=== PATIENT | male | born 1980 | race Two or more races ===

== ENCOUNTER 2023-01-05 10:43 | Inpatient (IN) | payer OTHER ==
[2023-01-05 11:50] VITALS: BMI 52.2
[2023-01-05] MEDS ORDERED: BENZONATATE 200 MG CAPSULE PO PRN (12:20)
[2023-01-05] MEDS ORDERED: NALOXONE HCL 0.4 MG/ML VIAL IM PRN (12:20)
[2023-01-05] MEDS ORDERED: DICYCLOMINE HCL 10 MG CAPSULE PO PRN (12:20)
[2023-01-05] MEDS ORDERED: guaiFENesin 600 MG TABLET.ER (FP) PO PRN (12:20)
[2023-01-05] MEDS ORDERED: MAG HYDROX/AL HYDROX/SIMETH 30 ML UNIT-DOSE CUP PO PRN (12:20)
[2023-01-05] MEDS ORDERED: chlordiazePOXIDE HCL 25 MG CAPSULE PO PRN (12:20)
[2023-01-05] MEDS ORDERED: BENZOCAINE/MENTHOL (CHLORASEPTIC ) LOZENGE MM PRN (12:20)
[2023-01-05] MEDS ORDERED: ACETAMINOPHEN 325 MG TABLET (FP) PO PRN (12:20)
[2023-01-05] MEDS ORDERED: BISMUTH SUBSALICYLATE 524 MG/30 ML PO PRN (12:20)
[2023-01-05] MEDS ORDERED: IBUPROFEN 400 MG TABLET (FP) PO PRN (12:20)
[2023-01-05] MEDS ORDERED: POLYETHYLENE GLYCOL (HEALTHYLAX) 3350 17 GM PACKET PO PRN (12:20)
[2023-01-05] MEDS ORDERED: ONDANSETRON *ODT* 4 MG TABLET SL PRN (12:20)
[2023-01-05] MEDS ORDERED: LOPERAMIDE HCL 2 MG CAPSULE PO PRN (12:20)
[2023-01-05] MEDS ORDERED: NALOXONE HCL (KLOXXADO) 8 MG SPRAY NS PRN (12:20)
[2023-01-05] MEDS ORDERED: IBUPROFEN 600 MG TABLET (FP) PO PRN (12:20)
[2023-01-05] MEDS ORDERED: MAGNESIUM HYDROX 2400MG/30ML ORAL SUSPENSION 30 ML CUP PO PRN (12:20)
[2023-01-05] MEDS ORDERED: chlordiazePOXIDE HCL 25 MG CAPSULE PO ONE (13:00)
[2023-01-05] MEDS ORDERED: NICOTINE 7 MG/24 HOURS TOPICAL PATCH TD ONE (14:20)
[2023-01-05] MEDS ORDERED: chlordiazePOXIDE HCL 25 MG CAPSULE ONE (14:20)
[2023-01-05] MEDS ORDERED: PRENATAL VITAMINS W/ FOLIC ACID TABLET (FP) PO ONE (14:21)
[2023-01-05] MEDS: NICOTINE 7 MG/24 HOURS TOPICAL PATCH TD SCH (14:24)
[2023-01-05] MEDS: PRENATAL VITAMINS W/ FOLIC ACID TABLET (FP) PO SCH (14:24)
[2023-01-05] MEDS: metFORMIN HCL 500 MG TABLET (FP) PO SCH (17:19)
[2023-01-05] MEDS: chlordiazePOXIDE HCL 25 MG CAPSULE PO SCH ×2 (17:19→22:10)
[2023-01-05] MEDS: MONTELUKAST NA 10 MG TABLET PO SCH (22:10)
[2023-01-05] MEDS: MIRTAZAPINE 15 MG TABLET (FP) PO SCH (22:10)
[2023-01-05] MEDS: QUEtiapine FUMARATE 25 MG TABLET PO SCH (22:10)
[2023-01-05] MEDS: THIAMINE HCL 100 MG TABLET (FP) PO SCH (22:10)
[2023-01-05] MEDS: INSULIN (LEVEMIR) 100 UNITS/ML UNITS SQ SCH (22:12)
[2023-01-05] MEDS: MELATONIN 5 MG TABLETS PO SCH (23:12)
[2023-01-06] MEDS: chlordiazePOXIDE HCL 25 MG CAPSULE PO SCH ×4 (05:50→22:37)
[2023-01-06] MEDS: metFORMIN HCL 500 MG TABLET (FP) PO SCH ×2 (07:38→17:36)
[2023-01-06] MEDS: EMPAGLIFLOZIN (NF) 10 MG TABLET PO SCH (10:10)
[2023-01-06] MEDS: PRENATAL VITAMINS W/ FOLIC ACID TABLET (FP) PO SCH (10:10)
[2023-01-06] MEDS: hydrOXYzine PAMOATE 25 MG CAPSULE (FP) PO PRN (10:11)
[2023-01-06] MEDS: METHOCARBAMOL 500 MG TABLET PO PRN (10:11)
[2023-01-06] MEDS: ATORVASTATIN CA 80 MG TABLET (FP) PO SCH (10:11)
[2023-01-06] MEDS: CHOLECALCIFEROL (VIT D3) 1,000 UNIT (25 MCG) TABLET PO SCH (10:11)
[2023-01-06] MEDS: ASPIRIN COATED 81 MG TABLET.EC PO SCH (10:12)
[2023-01-06] MEDS: ARIPiprazole 10 MG TABLET PO SCH (10:12)
[2023-01-06] MEDS: LISINOPRIL 20 MG TABLET PO SCH (10:12)
[2023-01-06] MEDS: NICOTINE 7 MG/24 HOURS TOPICAL PATCH TD SCH (10:13)
[2023-01-06 12:03] LABS: POTASSIUM 4.5 mmol/L (3.5-5.1)
[2023-01-06 12:04] LABS: HEMATOCRIT 44.6 % (35.4-49); MCH 30.3 pg (25.7-33.7); MCHC 33.6 g/dl (32.0-35.9); MEAN CELL VOLUME 90.1 fl (80-96); PLATELET COUNT 115 10^3/uL (134-434); RBC 4.95 M/mm3 (4.00-5.60); RDW 15.6 % (11.9-15.9)
[2023-01-06 12:21] LABS: CALCIUM 8.5 mg/dL (8.5-10.1)
[2023-01-06 12:23] LABS: ALBUMIN 3.4 g/dl (3.4-5.0); BLOOD UREA NITROGEN 10.4 mg/dL (7-18)
[2023-01-06 12:25] LABS: CREATININE 0.8 mg/dL (0.55-1.3)
[2023-01-06 12:26] LABS: TOT PROT 6.6 g/dl (6.4-8.2)
[2023-01-06 12:28] LABS: BILIRUBIN,TOTAL 0.5 mg/dL (0.2-1)
[2023-01-06] MEDS: LACTULOSE 20 GM/30 ML UDC (FOR ORAL USE ONLY) PO SCH ×2 (15:41→22:41)
[2023-01-06] MEDS: THIAMINE HCL 100 MG TABLET (FP) PO SCH (22:37)
[2023-01-06] MEDS: QUEtiapine FUMARATE 25 MG TABLET PO SCH (22:37)
[2023-01-06] MEDS: MONTELUKAST NA 10 MG TABLET PO SCH (22:37)
[2023-01-06] MEDS: MIRTAZAPINE 15 MG TABLET (FP) PO SCH (22:37)
[2023-01-07] MEDS: INSULIN (LEVEMIR) 100 UNITS/ML UNITS SQ SCH ×2 (00:16→23:15)
[2023-01-07] MEDS: MELATONIN 5 MG TABLETS PO SCH ×2 (00:25→23:16)
[2023-01-07] MEDS: chlordiazePOXIDE HCL 25 MG CAPSULE PO SCH ×4 (05:49→23:16)
[2023-01-07] MEDS: LACTULOSE 20 GM/30 ML UDC (FOR ORAL USE ONLY) PO SCH ×3 (05:50→23:15)
[2023-01-07] MEDS: metFORMIN HCL 500 MG TABLET (FP) PO SCH ×2 (06:23→17:13)
[2023-01-07] MEDS: PRENATAL VITAMINS W/ FOLIC ACID TABLET (FP) PO SCH (10:10)
[2023-01-07] MEDS: ATORVASTATIN CA 80 MG TABLET (FP) PO SCH (10:10)
[2023-01-07] MEDS: METHOCARBAMOL 500 MG TABLET PO PRN (10:10)
[2023-01-07] MEDS: ASPIRIN COATED 81 MG TABLET.EC PO SCH (10:11)
[2023-01-07] MEDS: hydrOXYzine PAMOATE 25 MG CAPSULE (FP) PO PRN (10:11)
[2023-01-07] MEDS: LISINOPRIL 20 MG TABLET PO SCH (10:11)
[2023-01-07] MEDS: ARIPiprazole 10 MG TABLET PO SCH (10:11)
[2023-01-07] MEDS: EMPAGLIFLOZIN (NF) 10 MG TABLET PO SCH (10:11)
[2023-01-07] MEDS: CHOLECALCIFEROL (VIT D3) 1,000 UNIT (25 MCG) TABLET PO SCH (10:12)
[2023-01-07] MEDS: NICOTINE 7 MG/24 HOURS TOPICAL PATCH TD SCH (10:12)
[2023-01-07] MEDS: MIRTAZAPINE 15 MG TABLET (FP) PO SCH (23:16)
[2023-01-07] MEDS: THIAMINE HCL 100 MG TABLET (FP) PO SCH (23:16)
[2023-01-07] MEDS: QUEtiapine FUMARATE 25 MG TABLET PO SCH (23:16)
[2023-01-07] MEDS: MONTELUKAST NA 10 MG TABLET PO SCH (23:16)
[2023-01-08] MEDS ORDERED: chlordiazePOXIDE HCL 10 MG CAPSULE PO PRN
[2023-01-08] MEDS: chlordiazePOXIDE HCL 10 MG CAPSULE PO SCH ×4 (05:41→22:12)
[2023-01-08] MEDS: LACTULOSE 20 GM/30 ML UDC (FOR ORAL USE ONLY) PO SCH ×3 (05:42→22:11)
[2023-01-08] MEDS: metFORMIN HCL 500 MG TABLET (FP) PO SCH ×2 (06:05→17:19)
[2023-01-08] MEDS: ATORVASTATIN CA 80 MG TABLET (FP) PO SCH (10:18)
[2023-01-08] MEDS: LISINOPRIL 20 MG TABLET PO SCH (10:18)
[2023-01-08] MEDS: CHOLECALCIFEROL (VIT D3) 1,000 UNIT (25 MCG) TABLET PO SCH (10:18)
[2023-01-08] MEDS: PRENATAL VITAMINS W/ FOLIC ACID TABLET (FP) PO SCH (10:19)
[2023-01-08] MEDS: ASPIRIN COATED 81 MG TABLET.EC PO SCH (10:19)
[2023-01-08] MEDS: hydrOXYzine PAMOATE 25 MG CAPSULE (FP) PO PRN (10:19)
[2023-01-08] MEDS: METHOCARBAMOL 500 MG TABLET PO PRN (10:19)
[2023-01-08] MEDS: ARIPiprazole 10 MG TABLET PO SCH (10:19)
[2023-01-08] MEDS: NICOTINE 7 MG/24 HOURS TOPICAL PATCH TD SCH (10:19)
[2023-01-08] MEDS: EMPAGLIFLOZIN (NF) 10 MG TABLET PO SCH (10:19)
[2023-01-08] MEDS: MONTELUKAST NA 10 MG TABLET PO SCH (22:11)
[2023-01-08] MEDS: INSULIN (LEVEMIR) 100 UNITS/ML UNITS SQ SCH (22:11)
[2023-01-08] MEDS: MIRTAZAPINE 15 MG TABLET (FP) PO SCH (22:12)
[2023-01-08] MEDS: THIAMINE HCL 100 MG TABLET (FP) PO SCH (22:12)
[2023-01-08] MEDS: QUEtiapine FUMARATE 25 MG TABLET PO SCH (22:12)
[2023-01-08] MEDS: MELATONIN 5 MG TABLETS PO SCH (22:15)
[2023-01-09] MEDS ORDERED: chlordiazePOXIDE HCL 10 MG CAPSULE PO SCH (05:00)
[2023-01-09] MEDS: LACTULOSE 20 GM/30 ML UDC (FOR ORAL USE ONLY) PO SCH (05:27)
[2023-01-09] MEDS: metFORMIN HCL 500 MG TABLET (FP) PO SCH (06:01)
[2023-01-09 09:29] VITALS: BP 120/72; PULSE 94; RESP 19; TEMP 98
[2023-01-10] MEDS ORDERED: chlordiazePOXIDE HCL 10 MG CAPSULE PO ONE (05:00)
[2023-01-11] MEDS ORDERED: LIRAGLUTIDE 0.6 MG/0.1 ML PEN.INJCTR SQ SCH (10:00)
== END 2023-01-09 09:40 | disposition home or self-care (01) | DRG 775 ==
LOC: YASAS 10:43 → Y3N 13:02 → Y6N 14:35
PROVIDERS: ADMIT Allergy & Immunology; ATTEND Surgery
PROC: HZ2ZZZZ Detoxification Services for Substance Abuse Treatment (ICD-10-PCS; principal; 2023-01-05)
DX: F10.230 Alcohol dependence with withdrawal, uncomplicated (principal); F12.20 Cannabis dependence, uncomplicated; F17.210 Nicotine dependence, cigarettes, uncomplicated; F10.282 Alcohol dependence with alcohol-induced sleep disorder; F31.9 Bipolar disorder, unspecified; E72.20 Disorder of urea cycle metabolism, unspecified; E78.5 Hyperlipidemia, unspecified; I10 Essential (primary) hypertension; J45.909 Unspecified asthma, uncomplicated; E11.9 Type 2 diabetes mellitus without complications; Z79.84 Long term (current) use of oral hypoglycemic drugs; E66.01 Morbid (severe) obesity due to excess calories; Z68.43 Body mass index [BMI] 50.0-59.9, adult; Z62.810 Personal history of physical and sexual abuse in childhood
CPT/HCPCS: 36415; 80053; 82140; 82962; 85027; 86780; 87635; 87811; 93005; 93010